=== PATIENT | female | born 1935 | race Caucasian/White ===

== ENCOUNTER 2017-09-01 14:21 | Observation (INO) | payer BC ==
--- NOTE | 2017-09-01 14:28 | PDOC ---
Rapid Medical Evaluation Medical Evaluation: Allergies Allergy/AdvReac Type Severity Reaction Status Date / Time No Known Allergies Allergy Verified 03/21/14 15:22 09/01/17 14:27 I have performed a brief in-person evaluation of this patient. The patient presents with a chief complaint of: fell out of bed around 8-9 am this morning, kept falling while walking and couldn't get up, so laid down, then kept falling, called daughter at 130pm and daughter went to see her and states she seemed disoriented so brought her to ER. Patient also reports "I also kept peeing." Previous similar episode "about 40 years ago, they didn't find anything." Pt has mild seizure disorder, afib, has pacer, on Eliquis. I have ordered the following: stroke order set, patient out of window for TPA/. The patient will proceed to the ED for further evaluation. Discharge Disposition - Diagnosis Weakness - Referrals - Patient Instructions - Post Discharge Activity
[2017-09-01] MEDS ORDERED: SODIUM CHLORIDE 1,000 ML IV SCH (14:30)
--- NOTE | 2017-09-01 14:45 | PDOC ---
History of Present Illness <Homer Fink - Last Filed: 09/01/17 16:08> - General History Source: Patient, Family Exam Limitations: No Limitations - History of Present Illness Initial Comments: 09/01/17 15:41 The patient is a 82 year old female, with a significant PMH of atrial fibrillation (on Eliquis) who presents to the emergency department with altered mental status and multiple falls this morning. The patient states when getting out of bed this morning she felt dizzy and fell off the bed onto her knees (no head injury). She denies any head strike/injury or loss of consciousness. The patient states she proceeded to fall multiples times and reports bladder incontinence. The patient states she called her daughter for assistance. As per the patients daughter, she reports the patient sounded more disorientated than her baseline when she arrived and appeared to be pale in color. The patient states that she also fell 1x yesterday but denies any head injury or loss of consciousness at that time. Per family, the pt appears at her baseline status here in the ED. Pt endorses urinating all morning but w/o dysuria. The patient denies chest pain, shortness of breath, or headache. Denies any double vision, blurry vision, numbness, tingling, loss of sensation or weakness. Denies fever, chills, nausea, vomit, diarrhea and constipation. Denies dysuria, urgency and hematuria. Allergies: NKA PCP: Dr Nolasco <Nghia Graves - Last Filed: 09/01/17 17:33> - General Chief Complaint: Injury Stated Complaint: Syncope/Near Syncope Time Seen by Provider: 09/01/17 14:33 Past History - Past Medical History Cancer: Yes (H/O SKIN) HTN: Yes Thyroid Disease: Yes (HYPO) - Suicide/Smoking/Psychosocial Hx Smoking Status: No Smoking History: Never smoked Have you smoked in the past 12 months: No Number of Cigarettes Smoked Daily: 0 Information on smoking cessation initiated: No Hx Alcohol Use: No Drug/Substance Use Hx: No <Homer Fink - Last Filed: 09/01/17 16:08> <Nghia Graves - Last Filed: 09/01/17 17:33> - Past Medical History Allergies/Adverse Reactions: Allergies Allergy/AdvReac Type Severity Reaction Status Date / Time No Known Allergies Allergy Verified 09/01/17 14:29 Home Medications: Ambulatory Orders Levothyroxine [Synthroid] 75 mcg PO DAILY 07/15/12 Metoprolol Succinate [Toprol XL] 50 mg PO DAILY 07/15/12 Amlodipine Besylate [Norvasc -] 5 mg PO DAILY 09/01/17 Apixaban [Eliquis] 2.5 mg PO BID 09/01/17 Latanoprost 0.005% Eye Drops [Xalatan 0.005% Eye Drops -] 1 drop OP HS 09/01/17 Review of Systems - Review of Systems Comments:: 09/01/17 15:42 CONSTITUTIONAL: No reported: Fever, Chills, Diaphoresis, Generalized Weakness, Malaise, Loss of Appetite HEENT: No reported: Rhinorrhea, Nasal Congestion, Throat Pain, Throat Swelling, Difficulty Swallowing, Mouth Swelling, Ear Pain, Eye Pain, Visual Changes CARDIOVASCULAR: No reported: Chest Pain, Syncope, Palpitations, Irregular Heart Rate, Lightheadedness, Peripheral Edema RESPIRATORY: No reported: Cough, Shortness of Breath, SOB with Exertion, Orthopnea, Wheezing , Stridor, Hemoptysis GASTROINTESTINAL: No reported: Abdominal pain, Abdominal Distension, Nausea, Vomiting, Diarrhea, Constipation, Melena, Hematochezia GENITOURINARY: +Frequency, No reported: Dysuria, Urgency, Hesitancy, Flank Pain, Genital Pain MUSCULOSKELETAL: No reported: Myalgia, Arthralgia, Joint Swelling, Back pain, Neck Pain SKIN: No reported: Rash, Itching, Pallor HEMATOLOGIC/IMMUNOLOGIC: No reported: Easy Bleeding, Easy Bruising, Lymphadenopathy, Frequent infections ENDOCRINE: No reported: Unexplained Weight Gain, Unexplained Weight Loss, Heat Intolerance , Cold Intolerance NEUROLOGIC: Present: +Unsteady Gait, +AMS, +Dizziness. No reported: Headache, Focal Weakness, Paresthesias, Seizure, PSYCHIATRIC: No reported: Anxiety, Depression <Nghia Graves - Last Filed: 09/01/17 17:33> *Physical Exam - Vital Signs Last Vital Signs Temp Pulse Resp BP Pulse Ox 98.3 F 70 16 150/68 98 09/01/17 14:26 09/01/17 14:26 09/01/17 14:26 09/01/17 14:26 09/01/17 14:26 <Homer Fink - Last Filed: 09/01/17 16:08> - Vital Signs Last Vital Signs Temp Pulse Resp BP Pulse Ox 98.0 F 72 16 157/67 98 09/01/17 14:56 09/01/17 15:01 09/01/17 14:56 09/01/17 14:56 09/01/17 15:01 - Physical Exam Comments: 09/01/17 15:42 GENERAL: The patient is awake, alert, and fully oriented, Nontoxic - in no acute distress. HEAD: Normocephalic, atraumatic. EYES: extraocular movements intact, sclera anicteric, conjunctiva clear. ENT: Normal voice, Moist mucous membranes. NECK: Normal range of motion, supple LUNGS: Breath sounds equal, clear to auscultation bilaterally. No wheezes, no rhonchi, no rales. HEART: Regular rate and rhythm, without murmur, rub or gallop. ABDOMEN: Soft, nontender, No guarding, no rebound.No CVA tenderness EXTREMITIES: Normal range of motion, no edema. No cyanosis. No erythema, or tenderness. PSYCH: Normal mood, normal affect. SKIN: Warm, Dry, normal turgor NEURO: Mental status: The patient is oriented x3. Cranial nerves: Cranial nerves II through XII are intact Motor: The upper extremities are 5 over 5 in all muscle groups. The lower extremities are 5 over 5 in all muscle groups. Negative pronator drift Sensation: Sensation is intact to light touch throughout. romberg negative Cerebellar: Mqcgee-wfprzw-zwkn is normal in both upper extremities. Heel-knee- allen is normal in both lower extremities. rapid alternating movements are normal. Gait: Normal. <Nghia Graves - Last Filed: 09/01/17 17:33> Heart Score/ECG Review - ECG Impressions Comment:: 09/01/17 15:16 Twelve-lead EKG was performed and reviewed by me. There is normal sinus rhythm with a normal rate. Rate of 70 The axis is normal. The intervals are normal. There are no ST or T wave abnormalities. <Homer Fink - Last Filed: 09/01/17 16:08> ED Treatment Course - LABORATORY CBC & Chemistry Diagram: 09/01/17 14:45 09/01/17 14:52 <Homer Fink - Last Filed: 09/01/17 16:08> - LABORATORY CBC & Chemistry Diagram: 09/01/17 14:45 09/01/17 14:52 - ADDITIONAL ORDERS Additional order review: Laboratory Results 09/01/17 09/01/17 14:52 14:45 PT with INR 15.50 H INR 1.37 H D Sodium 134 L Potassium 4.8 Chloride 104 Carbon Dioxide 22 Anion Gap 8 BUN 30 H Creatinine 2.1 H Creat Clearance w eGFR 22.49 Random Glucose 156 H Calcium 8.5 AST 30 ALT 10 L Albumin 3.5 Triglycerides 127 Cholesterol 207 H 09/01/17 14:45 RBC 4.18 MCV 95.0 MCHC 34.9 RDW 13.3 MPV 9.4 Neutrophils % 72.0 Lymphocytes % 21.5 Monocytes % 5.5 Eosinophils % 0.1 D Basophils % 0.9 - RADIOLOGY Radiograph Interpretation: 09/01/17 15:33 EXAM#: TYPE/EXAM: RESULT: [id number] CT/HEAD CT (STROKE) INDICATION: Dizziness. Falls. Clinical suspicion for CVA/TIA. TECHNIQUE: Axial noncontrast head CT with coronal and sagittal reformations. COMPARISON: 07/15/[address] FINDINGS: There is no acute intracranial hemorrhage or extra-axial collection. There is no compelling evidence of acute transcortical infarction at this time. MRI is more sensitive in detecting acute infarction. There is generalized, age appropriate mild cerebral volume loss with secondary prominence of the CSF spaces. There is no hydrocephalus. There are no mass effects. No midline shift. Symmetric calcifications within bilateral dentate nuclei is similar to the prior CT. There is calcific atherosclerosis along the internal carotid artery siphons. The calvarium is intact. The visualized paranasal sinuses and mastoid air cells are clear. Status post right cataract surgery. IMPRESSION: No definite interval change from 07/15/[address] No acute intracranial hemorrhage, mass effects or hydrocephalus. No compelling evidence of acute transcortical infarction at this time. MRI is more sensitive in detecting acute infarctions. These findings were discussed with Dr. Fink at 14:55 on 09/01/2017. Reported By: Kusum Staton DO 09/01/17 17:33 EXAM#: TYPE/EXAM: RESULT: [id number] RAD/CHEST X-RAY PORTABLE* Chest portable one view Clinical information given: baseline No discrete infiltrate or pleural effusion is noted. In comparison to a prior radiographic exam of 09/27/2014 interval appearance of several healed right posterolateral rib fractures is noted. The remainder of the exam demonstrates no obvious interval change. The heart, bc and mediastinum appear unremarkable as visualized. Right axilla surgical clips are noted. IMPRESSION: No radiographic evidence of acute disease. Reported By: Dylan Correia MD <Nghia Graves - Last Filed: 09/01/17 17:33> Medical Decision Making - Medical Decision Making 09/01/17 15:06 82y F mild seizure disorder, afib, has pacer, on Eliquis presents with AMS, unsteady gait, s/p fall this morning, was called as code enriquez in [facility]. Pt has b/ l hyperdensities on CT, however this was present on prior CT 83 months ago. Pt states she felt dizzy when she woke up this morning, fell (But didnt hit her head this morning) and has been feeling very unsetady when she was walking, also notes she has had urinary frequency this morning w/o dysuria. pt denies any headache, vision changes, dysarthria, numbness/tingling/ewakness, n/v, cp, sob, palpitations. on arrival the pt was clinical improved per daugther she appears in no distres aox3 with a normal neuro exam including normal cerebellar and gait ddx includes cva, tia, uti, metabolic deragenemtn, consider arrythmi, acs will ck labs will reassess A portion of this note was documented by scribe services under my direction. I have reviewed the details of the note, within reason, and agree with the documentation with the following case summary and management plan written by me 09/01/17 15:54 labs reviewed case dw dr. guallpa agree with management, requests MRI not TPA candiate due to rapid imrovement of symptoms and being on AC will admit to observation status <Homer Fink - Last Filed: 09/01/17 16:08> - Medical Decision Making 09/01/17 15:[address] Guallpa at 3:15 pm. Case discussed. <Nghia Graves - Last Filed: 09/01/17 17:33> *DC/Admit/Observation/Transfer - Discharge Dispostion Admit: Yes <Homer Fink - Last Filed: 09/01/17 16:08> - Attestations Scribe Attestion: 09/01/17 15:32 Documentation prepared by Nghia Graves, acting as medical corps officer for Homer Fink MD. <Nghia Graves - Last Filed: 09/01/17 17:33> Diagnosis at time of Disposition: TIA (transient ischemic attack) Qualifiers: Transient cerebral ischemia type: unspecified Qualified Code(s): G45.9 - Transient cerebral ischemic attack, unspecified - Discharge Dispostion Condition at time of disposition: Stable NIH Stroke Scale - Last Known Well Date/Time & Onset Date Last Known Well: 08/31/17 Time Last Known Well: 22:00 - Initial Evaluation Level of consciousness: Alert Ask patient the month and their age: Answers both correctly Ask patient to open & close eyes; make fist and let go: Obeys both correctly Best gaze (horizontal eye movement): Normal Visual field testing: No visual field loss Facial paresis (Show teeth/raise eyebrows/close eyes tight): Normal symmetrical movement Motor Function: Left Arm: Normal Motor Function: Right Arm: Normal (extends arm 90 (or 45) degrees for 10 seconds without drift Motor Function: Left Leg: Normal (extends leg 30 degrees for 5 seconds without drift) Motor Function: Right Leg: Normal (extends leg 30 degrees for 5 seconds without drift) Limb Ataxia: No ataxia Sensory(Use pinprick test arms,legs,trunk,face/side to side): Normal Best language (Describe picture, name items, read sentences): No Aphasia Dysarthria (read several words): Normal articulation Extinction and Inattention: No abnormality - Total Score NIH Stroke Scale Score: 0 <Homer Fnik - Last Filed: 09/01/17 16:08> tPA Exclusion checklist 3-4.5h - Time Elapsed Date last known well: 08/31/17 Time last known well: 22:00 Elaspsed time: Day(s) and 18 Hour(s) and 8 Minutes - Thrombolytic Therapy Candidate Is patient eligible for thrombolytic therapy: No - Relative Exclusion Criteria 3-4.5 hr Rapid improvement: Yes - Add'l Relative Exclusion 3-4.5 hr Taking an oral anticoagulant regardless of INR: Yes - Ineligibility reason(s) Reasons No tPA given: Outside of window - delayed arrival <Homer Fink - Last Filed: 09/01/17 16:08>
[2017-09-01 15:00] LABS: BASO % 0.9 % (0-2.0); EOS % 0.1 % (0-4.5); HEMATOCRIT 39.7 % (32.4-45.2); HEMOGLOBIN 13.9 GM/dL (10.7-15.3); LYMPH % 21.5 % (8-40); MCH 33.2 pg (25.7-33.7); MCHC 34.9 g/dl (32.0-36.0); MEAN PLT VOLUME 9.4 fl (7.5-11.1); MONO % 5.5 % (3.8-10.2); PLATELET COUNT 231 K/MM3 (134-434); RBC 4.18 M/mm3 (3.60-5.2); RDW 13.3 % (11.6-15.6); WHITE BLOOD COUNT 8.9 K/mm3 (4.0-10.0)
[2017-09-01 15:12] LABS: INR 1.37 (0.82-1.09); PROTHROMBIN TIME (PATIENT) 15.5 SEC (9.7-13.0)
[2017-09-01 15:30] LABS: ALBUMIN 3.5 g/dl (3.4-5.0); ANION GAP 8 (8-16); BLOOD UREA NITROGEN 30 mg/dL (7-18); CALCIUM 8.5 mg/dL (8.5-10.1); CHLORIDE 104 mmol/L (98-107); CHOLESTEROL 207 mg/dL (50-200); CO2 22 mmol/L (21-32); CREATININE 2.1 mg/dL (0.55-1.02); GLUCOSE,RANDOM 156 mg/dL (74-106); POTASSIUM 4.8 mmol/L (3.5-5.1); SGOT/AST 30 U/L (15-37); SGPT/ALT 10 U/L (12-78); SODIUM 134 mmol/L (136-145); TRIGLYCERIDES 127 mg/dL (35-160)
[2017-09-01 15:31] LABS: BILIRUBIN,TOTAL 0.9 mg/dL (0.2-1.0); LDL CHOLESTEROL (ONLY SJRH) 148 mg/dL (5-100); TOT PROT 7.3 g/dl (6.4-8.2)
[2017-09-01 15:32] LABS: ALK PHOS 59 U/L (45-117); HDL CHOLESTEROL 50 mg/dL (40-60)
--- NOTE | 2017-09-01 16:14 | EKG ---
Test Reason : Blood Pressure : / mmHG Vent. Rate : 070 BPM Atrial Rate : 070 BPM P-R Int : 154 ms QRS Dur : 096 ms QT Int : 412 ms P-R-T Axes : 062 005 054 degrees QTc Int : 444 ms NORMAL SINUS RHYTHM SEPTAL INFARCT , AGE UNDETERMINED ABNORMAL ECG WHEN COMPARED WITH ECG OF 15-JUL-2012 11:57, NO SIGNIFICANT CHANGE WAS FOUND Confirmed by MEG MCCANN MD ([id number]) on 09/01/2017 4:13:57 PM Referred By: Confirmed By:MEG MCCANN MD
[2017-09-01 16:17] LABS: URINE APPEARANCE CLEAR; URINE BILIRUBIN NEGATIVE (<2.0 mg/dL); URINE BLOOD 2+ (NEGATIVE); URINE COLOR LTYELLOW; URINE GLUCOSE (UA) NEGATIVE (NEGATIVE); URINE KETONE TRACE (NEGATIVE); URINE LEUK ESTERASE TRACE (NEGATIVE); URINE NITRITE NEGATIVE (NEGATIVE); URINE PROTEIN NEGATIVE (NEGATIVE); URINE UROBILINOGEN NEGATIVE mg/dL (0.2-1.0)
[2017-09-01 16:22] LABS: EPI CELLS RARE /HPF (FEW); URINE BACTERIA RARE /hpf (NONE SEEN); URINE MUCUS RARE
--- NOTE | 2017-09-01 16:37 | HP ---
Admitting History and Physical - Primary Care Physician PCP: Ken Nolasco - Admission Chief Complaint: falls History of Present Illness: is a pleasant 82 year old female pmh of afib on eliquis, s/p implantable loop recorder, htn, ckd-followed by , glaucoma who presents with frequent falls at home. Pt reports she had a fall yesterday without head trauma at home and was seen by PCP in the office. Since then, she reports she had 5 falls today without head trauma or loss of consciousness. She reports she felt dizzy,lightheaded, anxious and lost balance and fell onto knees. Denies nausea or sob upon falls. She also noticed she had urinary incontinence this morning which resolved. When she called her daughter this morning, daughter felt mom was disoriented, slight slurred speech. When she came over to see pt, she felt as pt looked pale. She had similar episode 4 years ago with work up neg. Prior history of seizure where she was placed on keppra by neurologist, now off of it. She reports she has been eating a little less since yesterday. Otherwise, pt denies any chest discomfort, sob, n/v/d, fever/chills, unilateral weakness, numbness/tingling. History Source: Patient, Family Member Limitations to Obtaining History: No Limitations - Past Medical History Cardiovascular: Yes: AFIB, HTN Renal/: Yes: Renal Inusuff - Past Surgical History Past Surgical History: Yes: None (implantable loop recorder) - Smoking History Smoking history: Never smoked Have you smoked in the past 12 months: No Aproximately how many cigarettes per day: 0 - Alcohol/Substance Use Hx Alcohol Use: No History of Substance Use: reports: None - Social History Usual Living Arrangement: Yes: Alone History of Recent Travel: No Home Medications - Allergies Allergies/Adverse Reactions: Allergies Allergy/AdvReac Type Severity Reaction Status Date / Time No Known Allergies Allergy Verified 09/01/17 14:29 - Home Medications Home Medications: Ambulatory Orders Levothyroxine [Synthroid] 75 mcg PO DAILY 07/15/12 Metoprolol Succinate [Toprol XL] 50 mg PO DAILY 07/15/12 Amlodipine Besylate [Norvasc -] 5 mg PO DAILY 09/01/17 Apixaban [Eliquis] 2.5 mg PO BID 09/01/17 Latanoprost 0.005% Eye Drops [Xalatan 0.005% Eye Drops -] 1 drop OP HS 09/01/17 Physical Examination Vital Signs: Vital Signs Temperature 98.1 F 09/01/17 16:02 Pulse Rate 65 09/01/17 16:02 Respiratory Rate 16 09/01/17 16:02 Blood Pressure 160/61 09/01/17 16:02 O2 Sat by Pulse Oximetry (%) 98 09/01/17 16:02 Labs: CBC, BMP 09/01/17 14:45 09/01/17 14:52 Imaging - Results Chest X-ray: Report Reviewed Cat Scan: Report Reviewed MRI: Pending EKG: Report Reviewed, Image Reviewed Problem List - Problems (1) Pre-syncope Assessment/Plan: etiology unclear, will r/o neuro/cardiac causes chest xray/head ct without acute findings labs unremarkable mild ivf hydration Orthostatics ordered MRI/cardiac echo pending Neurology/cardiology consulted Code(s): R55 - SYNCOPE AND COLLAPSE (2) HTN (hypertension) Assessment/Plan: controlled, mildly elevated continue metoprolol, amlodipine will monitor Code(s): I10 - ESSENTIAL (PRIMARY) HYPERTENSION Qualifiers: Hypertension type: essential hypertension Qualified Code(s): I10 - Essential (primary) hypertension (3) Afib Assessment/Plan: paroxysmal, s/p implantable loop recorder at [facility] eliquis 2.5mg bid metoprolol Code(s): I48.91 - UNSPECIFIED ATRIAL FIBRILLATION Qualifiers: Atrial fibrillation type: paroxysmal Qualified Code(s): I48.0 - Paroxysmal atrial fibrillation (4) CKD (chronic kidney disease) Assessment/Plan: chronic, Cr at baseline followed by outpt will monitor Code(s): N18.9 - CHRONIC KIDNEY DISEASE, UNSPECIFIED Qualifiers: Chronic kidney disease stage: stage 3 (moderate) Qualified Code(s): N18.3 - Chronic kidney disease, stage 3 (moderate) (5) Glaucoma Assessment/Plan: chronic continue lantoprost eye drops Code(s): H40.9 - UNSPECIFIED GLAUCOMA Qualifiers: Primary angle closure glaucoma type: chronic Laterality: bilateral (6) Hypothyroidism Assessment/Plan: chronic continue synthroid Code(s): E03.9 - HYPOTHYROIDISM, UNSPECIFIED
[2017-09-01] MEDS: APIXABAN 2.5 MG TABLET PO SCH (21:21)
[2017-09-01] MEDS ORDERED: LATANOPROST 0.005% OPHTH SOLN 2.5ML BOTTLE OU SCH (22:00)
[2017-09-01 23:32] VITALS: BMI 24.1
[2017-09-02] MEDS ORDERED: LEVOTHYROXINE NA 75 MCG TABLET (FP) PO SCH ×2 (07:00→10:00)
[2017-09-02 07:21] LABS: HEMOGLOBIN 12.8 GM/dL (10.7-15.3); LYMPH % 38.9 % (8-40); MCH 32.9 pg (25.7-33.7); MCHC 34.7 g/dl (32.0-36.0); MEAN CELL VOLUME 94.6 fl (80-96); MEAN PLT VOLUME 9.1 fl (7.5-11.1); NEUT % 48.1 % (42.8-82.8); PLATELET COUNT 184 K/MM3 (134-434); RBC 3.91 M/mm3 (3.60-5.2); RDW 13.5 % (11.6-15.6); WHITE BLOOD COUNT 8.4 K/mm3 (4.0-10.0)
[2017-09-02 07:50] LABS: ALBUMIN 3.1 g/dl (3.4-5.0); ANION GAP 5 (8-16); BLOOD UREA NITROGEN 29 mg/dL (7-18); CHLORIDE 115 mmol/L (98-107); CO2 21 mmol/L (21-32); GLUCOSE,RANDOM 90 mg/dL (74-106); MAGNESIUM 2.4 mg/dL (1.8-2.4); PHOSPHOROUS 3.9 mg/dL (2.5-4.9); POTASSIUM 4.3 mmol/L (3.5-5.1); SGOT/AST 23 U/L (15-37); SGPT/ALT 8 U/L (12-78); SODIUM 141 mmol/L (136-145); TOT PROT 6.3 g/dl (6.4-8.2)
[2017-09-02 07:58] LABS: ALK PHOS 49 U/L (45-117)
--- NOTE | 2017-09-02 09:37 | PN ---
Progress Note (short form) - Note Progress Note: Neurology History of Present Illness: is a pleasant 82 year old female pmh of afib on eliquis, s/p implantable loop recorder, htn, ckd, glaucoma who presents with frequent falls at home. Pt reports she had a fall at home on Tuesday without head trauma at home and was seen by PCP, Dr. Guerrero in the office. Reportedly with repeated falls but seems to be underreporting to me and says one fall 4 years ago. She reportd she felt dizzy,lightheaded, anxious and lost balance and fell onto knees. Denies nausea or sob upon falls. She also noticed she had urinary incontinence this morning which resolved. When she called her daughter this morning, daughter felt mom was disoriented, slight slurred speech. When she came over to see pt, she felt as pt looked pale. She had similar episode 4 years ago with work up neg. She reports she has been eating a little less. Otherwise, pt denies any chest discomfort, sob, n/v/d, fever/chills, unilateral weakness, numbness/tingling. CT head completed and did not show acute changes. MRI brain ordered. Spoke to Dr. Guerrero this AM. Was on Keppra for a brief period in the past and ordered by another neurologist. Does not appear to have seizure and events seem more syncopal so would not restart AED at this time though I am concerned about her ambulation and discussed PT with her and she was very much opposed to the idea. Does not believe rehab or outpatient PT will help her. - Past Medical History Cardiovascular: Yes: AFIB, HTN Renal/: Yes: Renal Inusuff - Past Surgical History Past Surgical History: Yes: None (implantable loop recorder) - Smoking History Smoking history: Never smoked Have you smoked in the past 12 months: No Aproximately how many cigarettes per day: 0 - Alcohol/Substance Use Hx Alcohol Use: No History of Substance Use: reports: None - Social History Usual Living Arrangement: Yes: Alone History of Recent Travel: No Home Medications - Allergies Allergies/Adverse Reactions: Allergies Allergy/AdvReac Type Severity Reaction Status Date / Time No Known Allergies Allergy Verified 09/01/17 14:29 - Home Medications Home Medications: Ambulatory Orders Levothyroxine [Synthroid] 75 mcg PO DAILY 07/15/12 Metoprolol Succinate [Toprol XL] 50 mg PO DAILY 07/15/12 Amlodipine Besylate [Norvasc -] 5 mg PO DAILY 09/01/17 Apixaban [Eliquis] 2.5 mg PO BID 09/01/17 Latanoprost 0.005% Eye Drops [Xalatan 0.005% Eye Drops -] 1 drop OP HS 09/01/17 Physical Examination Vital Signs Period Temp Pulse Resp BP Sys/Segura Pulse Ox Last 24 Hr 98.0 F-99.3 F 16-88 16-20 118-160/52-68 96-98 Labs: CBC, BMP 09/01/17 14:45 09/01/17 14:52 Imaging - Results Chest X-ray: Report Reviewed Cat Scan: Report Reviewed MRI: Pending EKG: Report Reviewed, Image Reviewed Problem List - Problems (1) Pre-syncope Assessment/Plan: etiology unclear chest xray/head ct without acute findings labs unremarkable Orthostatics ordered MRI/cardiac echo pending Neurology consulted Code(s): R55 - SYNCOPE AND COLLAPSE (2) HTN (hypertension) Assessment/Plan: controlled, mildly elevated continue metoprolol, amlodipine will monitor Code(s): I10 - ESSENTIAL (PRIMARY) HYPERTENSION Qualifiers: Hypertension type: essential hypertension Qualified Code(s): I10 - Essential (primary) hypertension (3) Afib Assessment/Plan: paroxysmal, s/p implantable loop recorder at [facility] eliquis 2.5mg bid metoprolol Code(s): I48.91 - UNSPECIFIED ATRIAL FIBRILLATION Qualifiers: Atrial fibrillation type: paroxysmal Qualified Code(s): I48.0 - Paroxysmal atrial fibrillation (4) CKD (chronic kidney disease) Assessment/Plan: chronic, Cr at baseline followed by outpt will monitor Code(s): N18.9 - CHRONIC KIDNEY DISEASE, UNSPECIFIED Qualifiers: Chronic kidney disease stage: stage 3 (moderate) Qualified Code(s): N18.3 - Chronic kidney disease, stage 3 (moderate) (5) Glaucoma Assessment/Plan: chronic continue lantoprost eye drops Code(s): H40.9 - UNSPECIFIED GLAUCOMA Qualifiers: Primary angle closure glaucoma type: chronic Laterality: bilateral (6) Hypothyroidism Assessment/Plan: chronic continue synthroid Code(s): E03.9 - HYPOTHYROIDISM, UNSPECIFIED Additional CC's: Bret Gant
--- NOTE | 2017-09-02 09:37 | CONSULT ---
Consult - text type - Consultation Consultation Note: Neurology History of Present Illness: is a pleasant 82 year old female pmh of afib on eliquis, s/p implantable loop recorder, htn, ckd, glaucoma who presents with frequent falls at home. Pt reports she had a fall at home on Tuesday without head trauma at home and was seen by PCP, Dr. Guerrero in the office. Reportedly with repeated falls but seems to be underreporting to me and says one fall 4 years ago. She reportd she felt dizzy,lightheaded, anxious and lost balance and fell onto knees. Denies nausea or sob upon falls. She also noticed she had urinary incontinence this morning which resolved. When she called her daughter this morning, daughter felt mom was disoriented, slight slurred speech. When she came over to see pt, she felt as pt looked pale. She had similar episode 4 years ago with work up neg. She reports she has been eating a little less. Otherwise, pt denies any chest discomfort, sob, n/v/d, fever/chills, unilateral weakness, numbness/tingling. CT head completed and did not show acute changes. MRI brain ordered. Spoke to Dr. Guerrero this AM. Was on Keppra for a brief period in the past and ordered by another neurologist. Does not appear to have seizure and events seem more syncopal so would not restart AED at this time though I am concerned about her ambulation and discussed PT with her and she was very much opposed to the idea. Does not believe rehab or outpatient PT will help her. - Past Medical History Cardiovascular: Yes: AFIB, HTN Renal/: Yes: Renal Inusuff - Past Surgical History Past Surgical History: Yes: None (implantable loop recorder) - Smoking History Smoking history: Never smoked Have you smoked in the past 12 months: No Aproximately how many cigarettes per day: 0 - Alcohol/Substance Use Hx Alcohol Use: No History of Substance Use: reports: None - Social History Usual Living Arrangement: Yes: Alone History of Recent Travel: No Review of Systems - Review of Systems CONSTITUTIONAL: No reported: Fever, Chills, Diaphoresis, Generalized Weakness, Malaise, Loss of Appetite HEENT: No reported: Rhinorrhea, Nasal Congestion, Throat Pain, Throat Swelling, Difficulty Swallowing, Mouth Swelling, Ear Pain, Eye Pain, Visual Changes CARDIOVASCULAR: No reported: Chest Pain, Syncope, Palpitations, Irregular Heart Rate, Lightheadedness, Peripheral Edema RESPIRATORY: No reported: Cough, Shortness of Breath, SOB with Exertion, Orthopnea, Wheezing , Stridor, Hemoptysis GASTROINTESTINAL: No reported: Abdominal pain, Abdominal Distension, Nausea, Vomiting, Diarrhea, Constipation, Melena, Hematochezia GENITOURINARY: +Frequency, No reported: Dysuria, Urgency, Hesitancy, Flank Pain, Genital Pain MUSCULOSKELETAL: No reported: Myalgia, Arthralgia, Joint Swelling, Back pain, Neck Pain SKIN: No reported: Rash, Itching, Pallor HEMATOLOGIC/IMMUNOLOGIC: No reported: Easy Bleeding, Easy Bruising, Lymphadenopathy, Frequent infections ENDOCRINE: No reported: Unexplained Weight Gain, Unexplained Weight Loss, Heat Intolerance , Cold Intolerance NEUROLOGIC: Present: +Unsteady Gait, +AMS, +Dizziness. No reported: Headache, Focal Weakness, Paresthesias, Seizure, PSYCHIATRIC: No reported: Anxiety, Depression Home Medications - Allergies Allergies/Adverse Reactions: Allergies Allergy/AdvReac Type Severity Reaction Status Date / Time No Known Allergies Allergy Verified 09/01/17 14:29 - Home Medications Home Medications: Ambulatory Orders Levothyroxine [Synthroid] 75 mcg PO DAILY 07/15/12 Metoprolol Succinate [Toprol XL] 50 mg PO DAILY 07/15/12 Amlodipine Besylate [Norvasc -] 5 mg PO DAILY 09/01/17 Apixaban [Eliquis] 2.5 mg PO BID 09/01/17 Latanoprost 0.005% Eye Drops [Xalatan 0.005% Eye Drops -] 1 drop OP HS 09/01/17 Physical Examination Vital Signs Period Temp Pulse Resp BP Sys/Segura Pulse Ox Last 24 Hr 98.0 F-99.3 F 16-88 16-20 118-160/52-68 96-98 GENERAL: The patient is awake, alert, and fully oriented, Nontoxic - in no acute distress. HEAD: Normocephalic, atraumatic. EYES: extraocular movements intact, sclera anicteric, conjunctiva clear. ENT: Normal voice, Moist mucous membranes. NECK: Normal range of motion, supple LUNGS: Breath sounds equal, clear to auscultation bilaterally. No wheezes, no rhonchi, no rales. HEART: Regular rate and rhythm, without murmur, rub or gallop. ABDOMEN: Soft, nontender, No guarding, no rebound.No CVA tenderness EXTREMITIES: Normal range of motion, no edema. No cyanosis. No erythema, or tenderness. PSYCH: Normal mood, normal affect. SKIN: Warm, Dry, normal turgor NEURO: Mental status: The patient is oriented x3. Cranial nerves: Cranial nerves II through XII are intact Motor: The upper extremities are 5 over 5 in all muscle groups. The lower extremities are 5 over 5 in all muscle groups. Negative pronator drift. Sensation: Sensation is intact to light touch throughout. Cerebellar: [id number] is normal in both upper extremities. CBCD WBC 8.4 K/mm3 (4.0-10.0) 09/02/17 06:30 RBC 3.91 M/mm3 (3.60-5.2) 09/02/17 06:30 Hgb 12.8 GM/dL (10.7-15.3) 09/02/17 06:30 Hct 37.0 % (32.4-45.2) 09/02/17 06:30 MCV 94.6 fl (80-96) 09/02/17 06:30 MCHC 34.7 g/dl (32.0-36.0) 09/02/17 06:30 RDW 13.5 % (11.6-15.6) 09/02/17 06:30 Plt Count 184 K/MM3 (134-434) D 09/02/17 06:30 MPV 9.1 fl (7.5-11.1) 09/02/17 06:30 CMP Sodium 141 mmol/L (136-145) 09/02/17 06:30 Potassium 4.3 mmol/L (3.5-5.1) 09/02/17 06:30 Chloride 115 mmol/L (98-107) H 09/02/17 06:30 Carbon Dioxide 21 mmol/L (21-32) 09/02/17 06:30 Anion Gap 5 (8-16) L 09/02/17 06:30 BUN 29 mg/dL (7-18) H 09/02/17 06:30 Creatinine 2.0 mg/dL (0.55-1.02) H 09/02/17 06:30 Creat Clearance w eGFR 23.79 (>60) 09/02/17 06:30 Calcium 8.0 mg/dL (8.5-10.1) L 09/02/17 06:30 Total Bilirubin 1.0 mg/dL (0.2-1.0) 09/02/17 06:30 AST 23 U/L (15-37) 09/02/17 06:30 ALT 8 U/L (12-78) L 09/02/17 06:30 Alkaline Phosphatase 49 U/L (45-117) 09/02/17 06:30 Total Protein 6.3 g/dl (6.4-8.2) L 09/02/17 06:30 Albumin 3.1 g/dl (3.4-5.0) L 09/02/17 06:30 Imaging Chest X-ray: Report Reviewed Cat Scan: Report Reviewed MRI: Pending Problem List 82 year old female pmh of afib on eliquis, s/p implantable loop recorder, htn, ckd, glaucoma who presents with frequent falls at home. Pt reports she had a fall at home on Tuesday without head trauma at home and was seen by PCP, Dr. Guerrero in the office. Reportedly with repeated falls but seems to be underreporting to me and says one fall [address] head negative for acute changes MRI brain ordered. Spoke to Dr. Guerrero this AM. Was on Keppra for a brief period in the past and ordered by another neurologist. Does not appear to have seizure and events seem more syncopal so would not restart AED at this time Recommend PT for ambulation Consider outpatient PT though patient opposed at this time Cardiology eval, syncope work up Orthostatic checks Increased hydration Monitor BP, maintain normotensive range Monitor Afib, on AC, if continued falls does risk bleeding Monitor CKd, defer to renal Consider assitive device for ambulation DVT ppx
[2017-09-02] MEDS ORDERED: PT OWN MED DRAWER 7, Y5N ONE (09:49)
[2017-09-02] MEDS ORDERED: amLODIPine BESYLATE 5 MG TABLET (FP) PO SCH (10:00)
[2017-09-02] MEDS: APIXABAN 2.5 MG TABLET PO SCH (10:08)
--- NOTE | 2017-09-02 11:16 | PN ---
Progress Note, Physician - Current Medication List Current Medications: Active Medications Amlodipine Besylate (Norvasc -) 5 mg PO DAILY [facility] Last Admin: 09/02/17 10:08 Dose: 5 mg Apixaban (Eliquis -) 2.5 mg PO BID [facility] Last Admin: 09/02/17 10:08 Dose: 2.5 mg Sodium Chloride (Normal Saline -) 1,000 mls @ 42 mls/hr IV ASDIR [facility] Last Admin: 09/01/17 14:46 Dose: 42 mls/hr Latanoprost (Xalatan 0.005% Eye Drops -) 1 drop OU HS [facility] Last Admin: 09/01/17 21:21 Dose: Not Given Levothyroxine Sodium (Synthroid -) 75 mcg PO MoWeFr@0700 [facility] Last Admin: 09/02/17 05:59 Dose: 75 mcg Levothyroxine Sodium (Synthroid -) 50 mcg PO SuTuThSa@0700 [facility] Metoprolol Succinate (Toprol Xl -) 50 mg PO DAILY [facility] Last Admin: 09/02/17 10:08 Dose: 50 mg - Objective Vital Signs: Vital Signs Temperature 98.3 F 09/02/17 06:00 Pulse Rate 54 L 09/02/17 06:00 Respiratory Rate 20 09/02/17 08:47 Blood Pressure 135/60 09/02/17 06:00 O2 Sat by Pulse Oximetry (%) 96 09/02/17 08:47 Labs: CBC, BMP 09/02/17 06:30 09/02/17 06:30 INR, PTT INR 1.37 (0.82-1.09) H D 09/01/17 14:45 Problem List - Problems (1) Pre-syncope Code(s): R55 - SYNCOPE AND COLLAPSE (2) HTN (hypertension) Code(s): I10 - ESSENTIAL (PRIMARY) HYPERTENSION Qualifiers: Hypertension type: essential hypertension Qualified Code(s): I10 - Essential (primary) hypertension (3) Afib Code(s): I48.91 - UNSPECIFIED ATRIAL FIBRILLATION Qualifiers: Atrial fibrillation type: paroxysmal Qualified Code(s): I48.0 - Paroxysmal atrial fibrillation (4) CKD (chronic kidney disease) Code(s): N18.9 - CHRONIC KIDNEY DISEASE, UNSPECIFIED Qualifiers: Chronic kidney disease stage: stage 3 (moderate) Qualified Code(s): N18.3 - Chronic kidney disease, stage 3 (moderate) (5) Glaucoma Code(s): H40.9 - UNSPECIFIED GLAUCOMA Qualifiers: Primary angle closure glaucoma type: chronic Laterality: bilateral (6) Hypothyroidism Code(s): E03.9 - HYPOTHYROIDISM, UNSPECIFIED
--- NOTE | 2017-09-02 11:17 | CON.CARD ---
Cardiology Consult (text) - Consultation Consultation Note: cc: presyncope hpi: 82 f hx ckd, htn, hypothyroid, pafib, loop recorder, here with presyncope. Yesterday had very little to eat all day, and was very active doing chores at home and felt weak/lightheaded so sat down and daughter called ems. No cp, sob, palps, loc, pnd, orthopnea, le edema. Feels fine now. Sees cardio at [facility]. pmh: per hpi psh: loop recorder social: no tob fam: no premature cad ros; per hpi; no nvd, fever, cough, tucker, vision changes, gib, heamturia, dysuria meds: Home Medications Medication Instructions Recorded Levothyroxine [Synthroid] 75 mcg PO DAILY 07/15/12 Metoprolol Succinate [Toprol XL] 50 mg PO DAILY 07/15/12 Amlodipine Besylate [Norvasc -] 5 mg PO DAILY 09/01/17 Apixaban [Eliquis] 2.5 mg PO BID 09/01/17 Latanoprost 0.005% Eye Drops 1 drop OP HS 09/01/17 [Xalatan 0.005% Eye Drops -] pe: Vital Signs Period Temp Pulse Resp BP Sys/Segura Pulse Ox Last 24 Hr 98.0 F-99.3 F 16-88 16-20 118-160/52-68 96-98 nad no jvd rrr s1s2 no mrg cta bl nl eff aaox3 no le e/c/c abd nt nd pos bs no janudice diaphoresis pos dp pt no carotid bruits Laboratory Last Values WBC 8.4 K/mm3 (4.0-10.0) 09/02/17 06:30 RBC 3.91 M/mm3 (3.60-5.2) 09/02/17 06:30 Hgb 12.8 GM/dL (10.7-15.3) 09/02/17 06:30 Hct 37.0 % (32.4-45.2) 09/02/17 06:30 MCV 94.6 fl (80-96) 09/02/17 06:30 MCH 32.9 pg (25.7-33.7) 09/02/17 06:30 MCHC 34.7 g/dl (32.0-36.0) 09/02/17 06:30 RDW 13.5 % (11.6-15.6) 09/02/17 06:30 Plt Count 184 K/MM3 (134-434) D 09/02/17 06:30 MPV 9.1 fl (7.5-11.1) 09/02/17 06:30 Neutrophils % 48.1 % (42.8-82.8) D 09/02/17 06:30 Lymphocytes % 38.9 % (8-40) D 09/02/17 06:30 Monocytes % 11.0 % (3.8-10.2) H D 09/02/17 06:30 Eosinophils % 1.0 % (0-4.5) D 09/02/17 06:30 Basophils % 1.0 % (0-2.0) 09/02/17 06:30 PT with INR 15.50 SEC (9.7-13.0) H 09/01/17 14:45 INR 1.37 (0.82-1.09) H D 09/01/17 14:45 Sodium 141 mmol/L (136-145) 09/02/17 06:30 Potassium 4.3 mmol/L (3.5-5.1) 09/02/17 06:30 Chloride 115 mmol/L (98-107) H 09/02/17 06:30 Carbon Dioxide 21 mmol/L (21-32) 09/02/17 06:30 Anion Gap 5 (8-16) L 09/02/17 06:30 BUN 29 mg/dL (7-18) H 09/02/17 06:30 Creatinine 2.0 mg/dL (0.55-1.02) H 09/02/17 06:30 Creat Clearance w eGFR 23.79 (>60) 09/02/17 06:30 POC Glucometer 160.29105 UNITS (80-120) 09/01/17 14:55 Random Glucose 90 mg/dL (74-106) 09/02/17 06:30 Calcium 8.0 mg/dL (8.5-10.1) L 09/02/17 06:30 Phosphorus 3.9 mg/dL (2.5-4.9) 09/02/17 06:30 Magnesium 2.4 mg/dL (1.8-2.4) 09/02/17 06:30 Total Bilirubin 1.0 mg/dL (0.2-1.0) 09/02/17 06:30 AST 23 U/L (15-37) 09/02/17 06:30 ALT 8 U/L (12-78) L 09/02/17 06:30 Alkaline Phosphatase 49 U/L (45-117) 09/02/17 06:30 Creatine Kinase 568 IU/L (26-192) H 09/01/17 14:52 Creatine Kinase Index 0.8 % (0.0-5.0) 09/01/17 14:52 CK-MB (CK-2) 4.977 ng/mL (0.5-3.6) H 09/01/17 14:52 Troponin I 0.02 ng/ml (0.00-0.05) 09/02/17 06:30 Total Protein 6.3 g/dl (6.4-8.2) L 09/02/17 06:30 Albumin 3.1 g/dl (3.4-5.0) L 09/02/17 06:30 Triglycerides 127 mg/dL (35-160) 09/01/17 14:52 Cholesterol 207 mg/dL (50-200) H 09/01/17 14:52 Total LDL Cholesterol 148 mg/dL (5-100) H 09/01/17 14:52 HDL Cholesterol 50 mg/dL (40-60) 09/01/17 14:52 TSH 1.19 uIU/ml (0.358-3.74) 09/02/17 06:30 Urine Color Ltyellow 09/01/17 14:45 Urine Appearance Clear 09/01/17 14:45 Urine pH 5.0 (5.0-8.0) 09/01/17 14:45 Ur Specific [place] 1.012 (1.001-1.035) 09/01/17 14:45 Urine Protein Negative (NEGATIVE) 09/01/17 14:45 Urine Glucose (UA) Negative (NEGATIVE) 09/01/17 14:45 Urine Ketones Trace (NEGATIVE) H 09/01/17 14:45 Urine Blood 2+ (NEGATIVE) H 09/01/17 14:45 Urine Nitrite Negative (NEGATIVE) 09/01/17 14:45 Urine Bilirubin Negative (<2.0 mg/dL) 09/01/17 14:45 Urine Urobilinogen Negative mg/dL (0.2-1.0) 09/01/17 14:45 Ur Leukocyte Esterase Trace (NEGATIVE) 09/01/17 14:45 Urine WBC (Auto) 1 /hpf (3-5) 09/01/17 14:45 Urine RBC (Auto) 2 /hpf (0-3) 09/01/17 14:45 Ur Epithelial Cells Rare /HPF (FEW) 09/01/17 14:45 Urine Bacteria Rare /hpf (NONE SEEN) 09/01/17 14:45 Urine Mucus Rare 09/01/17 14:45 Blood Type O NEGATIVE 09/01/17 14:45 Antibody Screen Negative 09/01/17 14:45 echo 08/2017: nl lv/rv, mild mr/tr/pr/ar cxr: clear lungs ecg: sr, nl intervals, no ischemic changes tele: sr/sb a/p: 82 f hx ckd, htn, hypothyroid, pafib, loop recorder, here with presyncope. presyncope: -seems vasovagal, possibly from poor po intake -echo unremarkable -no signs acs -tele benign -check ortho vs -neuro eval ckd: -cr at baseline htn: -cont home meds pafib: -in sr now -cont bb, ac with eliquis -per pt had loop recorder placed 4 yrs ago and this is what found her afib, device likely no longer functioning but as per pt she was told it can remain in place for now.
[2017-09-02 15:08] VITALS: BP 148/61; PULSE 57; TEMP 99.5
--- NOTE | 2017-09-02 15:17 | DS ---
Physical Examination Vital Signs: Vital Signs Temperature 99.5 F 09/02/17 13:00 Pulse Rate 57 L 09/02/17 13:00 Respiratory Rate 20 09/02/17 13:00 Blood Pressure 148/61 09/02/17 13:00 O2 Sat by Pulse Oximetry (%) 96 09/02/17 08:47 Constitutional: Yes: Well Nourished, No Distress, Calm Cardiovascular: Yes: WNL, Regular Rate and Rhythm. No: Gallop, Murmur Respiratory: Yes: WNL, Regular, CTA Bilaterally. No: Accessory Muscle Use, Tachypnea, Wheezes Gastrointestinal: Yes: WNL, Normal Bowel Sounds, Soft. No: Distention, Tenderness Renal/: Yes: WNL Edema: No Neurological: Yes: WNL, Alert, Oriented Psychiatric: Yes: WNL, Alert, Oriented Labs: CBC, BMP 09/02/17 06:30 09/02/17 06:30 Discharge Summary Reason For Visit: TRANSIENT CEREBRAL ISCHEMIA Current Active Problems Afib (Acute) CKD (chronic kidney disease) (Acute) Glaucoma (Acute) HTN (hypertension) (Acute) Hypothyroidism (Acute) Pre-syncope (Acute) TIA (transient ischemic attack) (Acute) Hospital Course: is a pleasant 82 year old female who was admitted for evaluation of pre -syncope. Pt cleared by cardiology and neurology. Head CT/MRI/echo neg. All work up neg. Pt reports eating and drinking less, could be provoked by poor po intake. Pt currently denies any chest discomfort, dizziness or lightheadedness. Worked well with PT. Otherwise, pt is medically cleared for discharge from hospital. Pt advised to f/u as directed. Condition: Stable - Instructions Diet, Activity, Other Instructions: resume prev activity, diet f/u with pcp as directed cardiology referral included maintain adequate hydration at least 2l fluids/day Referrals: Tylor Spaulding MD [Staff Physician] - 3 Weeks Ken Nolasco MD [Primary Care Provider] - 1 Week Disposition: HOME - Home Medications Comprehensive Discharge Medication List: Ambulatory Orders Levothyroxine [Synthroid -] 75 mcg PO DAILY 07/15/12 Metoprolol Succinate [Toprol XL -] 50 mg PO DAILY 07/15/12 Amlodipine Besylate [Norvasc -] 5 mg PO DAILY 09/01/17 Apixaban [Eliquis] 2.5 mg PO BID 09/01/17 Latanoprost 0.005% Eye Drops [Xalatan 0.005% Eye Drops -] 1 drop OP HS 09/01/17
[2017-09-03] MEDS ORDERED: LEVOTHYROXINE NA 50 MCG TABLET (FP) PO SCH (07:00)
== END 2017-09-02 16:53 | disposition home or self-care (01) ==
LOC: JER 14:21 → JERBED 16:09 → J4S 19:14
PROVIDERS: ADMIT Internal Medicine; ATTEND Internal Medicine
PROC: 3E0337Z Introduction of Electrolytic and Water Balance Substance into Peripheral Vein, Percutaneous Approach (ICD-10-PCS; principal; 2017-09-01)
DX: G45.9 Transient cerebral ischemic attack, unspecified (principal); I12.9 Hypertensive chronic kidney disease with stage 1 through stage 4 chronic kidney disease, or unspecified chronic kidney disease; N18.3 Chronic kidney disease, stage 3 (moderate); I48.0 Paroxysmal atrial fibrillation; E03.9 Hypothyroidism, unspecified; G40.909 Epilepsy, unspecified, not intractable, without status epilepticus; Z85.828 Personal history of other malignant neoplasm of skin; Z79.01 Long term (current) use of anticoagulants; R55 Syncope and collapse; Z95.818 Presence of other cardiac implants and grafts
CPT/HCPCS: 36415; 70450-TC; 70551-TC; 71045-TC-FY; 80053; 81003; 81015; 82465; 82550; 82553; 82962; 83718; 83721; 83735; 84100; 84443; 84478; 84484; 85025; 85610; 86850; 86900; 86901; 87086; 93005; 93010; 93306-TC; 97116-GP; 97161-GP; 99285-25; G0378; J7030

== ENCOUNTER 2022-07-22 09:12 | Observation (INO) | payer BC ==
[2022-07-22 11:02] LABS: HEMATOCRIT 39.2 % (32.4-45.2); HEMOGLOBIN 13.2 G/dL (10.7-15.3); MCH 31.4 pg (25.7-33.7); MCHC 33.7 g/dl (32.0-36.0); MEAN CELL VOLUME 92.9 fl (80-96); MEAN PLT VOLUME 8.8 fl (7.5-11.1); PLATELET COUNT 212.5 10^3/uL (134-434); RBC 4.22 10^6/uL (3.60-5.2); RDW 15.2 % (11.6-15.6); WHITE BLOOD COUNT 10.7 10^3/uL (4.0-10.8)
[2022-07-22 11:21] LABS: ALBUMIN 3.9 g/dl (3.4-5.0); BILIRUBIN,TOTAL 1.3 mg/dl (0.2-1); CALCIUM 8.8 mg/dl (8.5-10); CREATININE 2.1 mg/dl (0.55-1.3); MAGNESIUM 2.3 mg/dL (1.8-2.4); TOT PROT 7.1 g/dl (6.4-8.2)
[2022-07-22 11:35] LABS: PLATELET ESTIMATE ADEQUATE
[2022-07-22] MEDS ORDERED: POTASSIUM CHLORIDE TABS 20 MEQ TABLET.ER (FP) PO ONE ×2 (11:38→11:50)
[2022-07-22 11:40] LABS: EPITHELIAL CELLS FEW /hpf
[2022-07-22] MEDS ORDERED: KCL 10 MEQ IVPB 20 MEQ/200 ML INFUS.BAG IVPB ONE (11:50)
[2022-07-22] MEDS: KCL 10 MEQ IVPB 10 MEQ/100 ML INFUS.BAG IVPB SCH ×2 (12:00→15:46)
[2022-07-22] MEDS ORDERED: amLODIPine BESYLATE 5 MG TABLET (FP) PO SCH (12:45)
[2022-07-22 15:20] VITALS: BMI 21.7
[2022-07-22 18:19] LABS: N-TERMINAL BNP 3907.4 pg/ml (5-450)
[2022-07-22 18:56] LABS: ALBUMIN 3.4 g/dl (3.4-5.0); BILIRUBIN,TOTAL 1.1 mg/dl (0.2-1); CALCIUM 8.5 mg/dl (8.5-10); CREATININE 1.9 mg/dl (0.55-1.3); TOT PROT 6.2 g/dl (6.4-8.2)
[2022-07-22] MEDS: APIXABAN 2.5 MG TABLET PO SCH (21:06)
[2022-07-22] MEDS ORDERED: APIXABAN 5 MG TABLET PO SCH (22:00)
[2022-07-23 02:20] VITALS: RESP 18
[2022-07-23 06:43] VITALS: BP 155/50; PULSE 51; TEMP 98
[2022-07-23] MEDS: APIXABAN 2.5 MG TABLET PO SCH (09:29)
[2022-07-23] MEDS ORDERED: NIFEdipine E.R. 30 MG TABLET PO SCH (10:00)
== END 2022-07-23 15:25 | disposition home or self-care (01) ==
LOC: FER 09:12 → FM/S 11:37
PROC: 3E033GC Introduction of Other Therapeutic Substance into Peripheral Vein, Percutaneous Approach (ICD-10-PCS; principal; 2022-07-22)
DX: E87.6 Hypokalemia (principal); I45.81 Long QT syndrome; I48.91 Unspecified atrial fibrillation; I12.9 Hypertensive chronic kidney disease with stage 1 through stage 4 chronic kidney disease, or unspecified chronic kidney disease; N18.9 Chronic kidney disease, unspecified; H40.9 Unspecified glaucoma; E78.5 Hyperlipidemia, unspecified; E03.9 Hypothyroidism, unspecified; Z85.828 Personal history of other malignant neoplasm of skin; Z79.01 Long term (current) use of anticoagulants
CPT/HCPCS: 0241U-QW; 36415; 80053; 81003; 81015; 82962; 83036; 83735; 83880; 84439; 84443; 85027; 93005; 99285-25; G0378